=== PATIENT | female | born 1985 | race Caucasian/White ===

== ENCOUNTER 2017-08-17 12:31 | Emergency (ER) | payer BC, OTHER ==
[2017-08-17 12:48] VITALS: BP 132/76; RESP 16
[2017-08-17] MEDS ORDERED: ONDANSETRON 4 MG/2 ML VIAL IVP STA (12:57)
[2017-08-17] MEDS ORDERED: KETOROLAC 30 MG/ML 1 ML VIAL IVP STA (12:57)
[2017-08-17] MEDS ORDERED: FAMOTIDINE 20 MG/2 ML VIAL IV STA (12:58)
[2017-08-17] MEDS ORDERED: SODIUM CHLORIDE 0.9% 1,000 ML IV ONE (12:58)
[2017-08-17] MEDS ORDERED: DICYCLOMINE 10 MG/ML 2 ML AMP IM STA (12:58)
--- NOTE | 2017-08-17 13:00 | ED ---
Abdominal Pain HPI - General Chief Complaint: Abdominal Pain Stated Complaint: Vomiting, RIght side pain Time Seen by Provider: 08/17/17 12:50 Source: patient Mode of arrival: ambulatory Limitations: no limitations - History of Present Illness Initial Comments: 30-year-old female presenting with nausea vomiting diarrhea and right lower quadrant abdominal pain. Patient states the last month she's been seeing her primary care doctor for nausea and epigastric abdominal pain. She was prescribed Prilosec and Zofran. She states this morning she had multiple episodes of emesis, took Zofran at 7 AM without relief, and then began to develop sharp shooting right lower quadrant abdominal pain radiating to her right flank. She denies any urinary symptoms. States she's had multiple episodes diarrhea. Denies any recent antibiotics. Admits to subjective fever and chills. - Related Data Home Medications Medication Instructions Recorded Confirmed lamoTRIgine [LaMICtal] 200 mg PO DAILY 09/18/15 05/03/16 Previous Rx's Medication Instructions Recorded Cyclobenzaprine [Flexeril] 5 mg PO TID PRN #15 tablet 05/03/16 Hydrocodone/Acetaminophen [[place] 1 tab PO Q6HR PRN #15 tab 05/03/16 5-325] Ondansetron Odt [Zofran Odt] 4 mg PO Q8HR PRN #10 tab 05/03/16 Allergies Allergy/AdvReac Type Severity Reaction Status Date / Time Penicillins Allergy Unknown Verified 08/17/17 12:48 acetaminophen AdvReac Nausea & Verified 08/17/17 12:48 [From Tylenol-Codeine #3] Vomiting codeine phosphate AdvReac Nausea & Verified 08/17/17 12:48 [From Tylenol-Codeine #3] Vomiting Review of Systems ROS Statement: Those systems with pertinent positive or pertinent negative responses have been documented in the HPI. Review of Systems Constitutional: Denies fever, chills Eyes: Denies change in vision, Denies pain Ears, nose, mouth, throat: Denies headaches, Denies sore throat Cardiovascular: Denies chest pain. Denies palpitations Respiratory: Denies shortness of breath, Denies cough Gastrointestinal: Positive abdominal pain. Positive nausea, vomiting, diarrhea. Genitourinary: Denies hematuria, Denies infections Musculoskeletal: Denies pain, Denies swelling Integumentary: Denies rash Neurological: Denies headache, focal weakness, focal numbness Psychiatric: Denies anxiety, Denies depression Hematologic/Lymphatic: Denies easy bleeding or bruising ROS Other: All systems not noted in ROS Statement are negative. Past Medical History Past Medical History: No Reported History History of Any Multi-Drug Resistant Organisms: None Reported Past Surgical History: Section, Ear Surgery, Tubal Ligation Additional Past Surgical History / Comment(s): wisdom teeth Past Psychological History: Bipolar Smoking Status: Current every day smoker Past Alcohol Use History: None Reported Past Drug Use History: None Reported General Exam - General Exam Comments Initial Comments: General: Awake, alert, No acute Distress HENT: Normocephalic. Atraumatic Eyes: PERRL. EOMI. No scleral icterus. No injected conjunctiva Neck: Full ROM Chest/Lungs: Clear to auscultation bilaterally. No wheezing, rhonchi, or rales Cardiac: Regular rate, rhythm. No murmurs or rubs Abdomen/GI: TTP in RLQ. Negative Villarreal's sign. No rebound, guarding, or rigidity. Musculoskeletal: Full ROM Skin: Warm, dry, intact Neurologic: A/Ox3, no weakness, no sensory deficit, no abnormal gait, no coordination deficit Limitations: no limitations Course Vital Signs 08/17/17 12:45 Temperature 99.1 F Pulse Rate 83 Respiratory 16 Rate Blood Pressure 132/76 O2 Sat by Pulse 100 Oximetry Medical Decision Making - Medical Decision Making 32-year-old female presenting with abdominal pain, nausea vomiting diarrhea. Initial exam patient's awake, alert, no acute distress. VSS. Patient does have right lower quadrant abdominal tenderness. Laboratory workup is unremarkable and she has no leukocytosis. UA showed 16 squamous epithelial cells with 6 RBCs and 6 WBCs. She is negative of leukocyte esterase and nitrites. Does not meet criteria for UTI at this time. Patient's CT showed sclerosis at the sacroiliac joints. Patient is complaining of pain radiating from that area. The remainder of her CT is unremarkable. No further emergent workup indicated. Patient instructed to follow up with her primary care physician and with GI follow up provided. She was given return to ED instructions, verbalized understanding, and is agreeable to D/C plan. - Lab Data Result diagrams: 08/17/17 13:03 08/17/17 13:03 Lab Results 0408/17/17 08/17/17 Range/Units 13:03 13:03 13:40 WBC 10.5 (3.8-10.6) k/uL RBC 4.69 (3.80-5.40) m/uL Hgb 13.3 (11.4-16.0) gm/dL Hct 41.4 (34.0-46.0) % MCV 88.2 (80.0-100.0) fL MCH 28.4 (25.0-35.0) pg MCHC 32.2 (31.0-37.0) g/dL RDW 12.6 (11.5-15.5) % Plt Count 327 (150-450) k/uL Neutrophils % 68 % Lymphocytes % 25 % Monocytes % 4 % Eosinophils % 1 % Basophils % 0 % Neutrophils # 7.2 (1.3-7.7) k/uL Lymphocytes # 2.6 (1.0-4.8) k/uL Monocytes # 0.5 (0-1.0) k/uL Eosinophils # 0.1 (0-0.7) k/uL Basophils # 0.0 (0-0.2) k/uL Sodium 145 (137-145) mmol/L Potassium 4.3 (3.5-5.1) mmol/L Chloride 108 H (98-107) mmol/L Carbon Dioxide 26 (22-30) mmol/L Anion Gap 11 mmol/L BUN 14 (7-17) mg/dL Creatinine 0.70 (0.52-1.04) mg/dL Est GFR (CKD-EPI)AfAm >90 (>60 ml/min/1.73 sqM) Est GFR (CKD-EPI)NonAf >90 (>60 ml/min/1.73 sqM) Glucose 90 (74-99) mg/dL Calcium 9.4 (8.4-10.2) mg/dL Total Bilirubin 0.2 (0.2-1.3) mg/dL Conjugated Bilirubin 0.0 (0.0-0.3) mg/dL Unconjugated Bilirubin 0.0 (0.0-1.1) mg/dL Delta Bilirubin 0.2 (0.0-0.2) mg/dL AST 21 (14-36) U/L ALT 29 (9-52) U/L Alkaline Phosphatase 76 (38-126) U/L Total Protein 7.1 (6.3-8.2) g/dL Albumin 4.0 (3.5-5.0) g/dL Lipase 75 (23-300) U/L HCG, Qual Not Detected Urine Color Yellow Urine Appearance Cloudy H (Clear) Urine pH 6.0 (5.0-8.0) Ur Specific [place] 1.024 (1.001-1.035) Urine Protein Trace H (Negative) Urine Glucose (UA) Negative (Negative) Urine Ketones Negative (Negative) Urine Blood Trace H (Negative) Urine Nitrite Negative (Negative) Urine Bilirubin Negative (Negative) Urine Urobilinogen <2.0 (<2.0) mg/dL Ur Leukocyte Esterase Negative (Negative) Urine RBC 6 H (0-5) /hpf Urine WBC 6 H (0-5) /hpf Ur Squamous Epith Cells 16 H (0-4) /hpf Urine Mucus Moderate H (None) /hpf Disposition Clinical Impression: Abdominal pain, Nausea and vomiting, Sacroiliac joint disease Disposition: HOME SELF-CARE Condition: Good Instructions: Abdominal Pain (ED), Acute Nausea and Vomiting (ED), Sacroiliitis (ED) Referrals: Emiliano Orozco PAC [Primary Care Provider] - 1-2 days Deuce Martins MD [STAFF PHYSICIAN] - 1-2 days
[2017-08-17 13:18] LABS: Basophils % (A) 0 %; Eosinophils # (A) 0.1 k/uL (0-0.7); Eosinophils % (A) 1 %; HCT 41.4 % (34.0-46.0); HGB 13.3 gm/dL (11.4-16.0); Lymphocytes # (A) 2.6 k/uL (1.0-4.8); Lymphocytes % (A) 25 %; MCH 28.4 pg (25.0-35.0); MCHC 32.2 g/dL (31.0-37.0); MCV 88.2 fL (80.0-100.0); Mean Platelet Volume 7.8; Monocytes # (A) 0.5 k/uL (0-1.0); Monocytes % (A) 4 %; Neutrophils # (A) 7.2 k/uL (1.3-7.7); Neutrophils % (A) 68 %; Platelet Count 327 k/uL (150-450); RBC 4.69 m/uL (3.80-5.40); RDW 12.6 % (11.5-15.5); WBC 10.5 k/uL (3.8-10.6)
[2017-08-17 13:22] LABS: ALT 29 U/L (9-52); AST 21 U/L (14-36); Alkaline Phosphatase 76 U/L (38-126); Anion Gap 11 mmol/L; Bilirubin, Delta 0.2 mg/dL (0.0-0.2); Blood Urea Nitrogen 14 mg/dL (7-17); Calcium 9.4 mg/dL (8.4-10.2); Carbon Dioxide 26 mmol/L (22-30); Chloride 108 mmol/L (98-107); Glucose 90 mg/dL (74-99); Lipase 75 U/L (23-300); Potassium 4.3 mmol/L (3.5-5.1); Sodium 145 mmol/L (137-145); Total Bilirubin 0.2 mg/dL (0.2-1.3); Total Protein 7.1 g/dL (6.3-8.2)
[2017-08-17 13:23] LABS: HCG,Qualitative Serum Not Detected
[2017-08-17 14:09] LABS: Appearance,Urine Cloudy (Clear); Bilirubin,Urine Negative (Negative); Blood,Urine Trace (Negative); Color,Urine Yellow; Glucose,Urine (UA) Negative (Negative); Ketones,Urine Negative (Negative); Leukocyte Esterase,Urine Negative (Negative); Mucus,Urine Moderate /hpf; Nitrite,Urine Negative (Negative); Protein,Urine Trace (Negative); RBC,Urine 6 /hpf (0-5); Specific Gravity,Urine 1.024 (1.001-1.035); Squamous Epithelial Cell,Urine 16 /hpf (0-4); Urobilinogen,Urine <2.0 mg/dL (<2.0); WBC,Urine 6 /hpf (0-5)
--- NOTE | 2017-08-17 14:53 | CT ---
EXAMINATION TYPE: CT abdomen pelvis wo con DATE OF EXAM: 08/17/2017 COMPARISON: Previous exam 05/03/2016 HISTORY: Rt sided pain, vomiting CT DLP: 1034 mGycm Automated exposure control for dose reduction was used. TECHNIQUE: Helical acquisition of images from the lung bases through the pelvis. FINDINGS: Lack of intravenous contrast may compromise sensitivity. Umbilical hernia contains fat. LUNG BASES: No significant abnormality is appreciated. AORTA: No significant abnormality is appreciated. LIVER/GB: No significant abnormality is appreciated. PANCREAS: No significant abnormality is seen. SPLEEN: No significant abnormality is seen. ADRENALS: No significant abnormality is seen. KIDNEYS: No evident hydronephrosis. There are changes of medullary sponge kidney, no evident hydronep hrosis or ureteral calcification. REPRODUCTIVE ORGANS: Fallopian tubal ligation clips are present.. URINARY BLADDER: No significant abnormality is seen. BOWEL: No bowel obstruction. Appendix is normal. FREE AIR: No Free Air is visible. ASCITES: None visible. PELVIC ADENOPATHY: None visualized. RETROPERITONEAL ADENOPATHY: No Retroperitoneal Adenopathy visible. OSSEOUS STRUCTURES: Sclerosis present at the sacroiliac joints could be due to chronic stress change . IMPRESSION: NONCONTRAST EXAM. NO ABNORMALITY EVIDENT TO ACCOUNT FOR PATIENT'S SYMPTOMS. ADDITIONAL NONSPECIFIC FI NDINGS ABOVE.
[2017-08-17 15:23] VITALS: PULSE 81; TEMP 98.6
== END 2017-08-17 15:22 | disposition home or self-care (01) ==
LOC: EC 12:31
DX: R10.31 Right lower quadrant pain (principal); R10.13 Epigastric pain; R11.2 Nausea with vomiting, unspecified; M53.3 Sacrococcygeal disorders, not elsewhere classified; R19.7 Diarrhea, unspecified; F31.9 Bipolar disorder, unspecified; F17.200 Nicotine dependence, unspecified, uncomplicated; Z79.899 Other long term (current) drug therapy; Z88.0 Allergy status to penicillin; Z88.5 Allergy status to narcotic agent; Z88.6 Allergy status to analgesic agent
CPT/HCPCS: 36415; 80048; 80076; 83690; 85025; 81001; 84703; 74176; 99284; 96374; 96375 ×2; 96361; 96372; J0500; J2405; J1885

== ENCOUNTER 2019-06-30 09:12 | Emergency (ER) | payer BC, OTHER ==
[2019-06-30 09:44] VITALS: RESP 18; TEMP 98.3
[2019-06-30] MEDS ORDERED: ONDANSETRON 4 MG/2 ML VIAL IVP STA (10:15)
[2019-06-30] MEDS ORDERED: KETOROLAC 30 MG/ML 1 ML VIAL IVP STA (10:15)
[2019-06-30] MEDS ORDERED: SODIUM CHLORIDE 0.9% 1,000 ML IV STA (10:15)
--- NOTE | 2019-06-30 10:36 | ED ---
Skin/Abscess/FB HPI - General Chief complaint: Skin/Abscess/Foreign Body Stated complaint: rash/body numbness Time Seen by Provider: 06/30/19 10:04 Source: patient Mode of arrival: ambulatory Limitations: no limitations - History of Present Illness Initial comments: Patient is a 34-year-old female, with history of bipolar, presenting to emergency Department with complaints of a rash on the inside of her bilateral upper legs that she noticed 3 days ago. Patient states she felt like the rash was spreading. She states the rash increases in the shower. Patient states she also has been having a headache and nausea and vomiting for the past 3 days as well. She states she has history of blood clots her and her family and is afraid she may be having a clot. Patient denies any pain in her legs, redness or swelling. She denies any recent travel. She denies being on control. She states she does have a history of headaches but states they usually go away faster than this one is. She does admit to going through a divorce currently, so her stress level has significantly increased. She denies any trauma. She denies any fever, chills, shortness of breath, chest pain, abdominal pain. She has no other complaints at this time. Upon arrival to the ER her vital signs are stable. - Related Data Home Medications Medication Instructions Recorded Confirmed lamoTRIgine [LaMICtal] 200 mg PO DAILY 09/18/15 05/03/16 Previous Rx's Medication Instructions Recorded Cyclobenzaprine [Flexeril] 5 mg PO TID PRN #15 tablet 05/03/16 Hydrocodone/Acetaminophen [[place] 1 tab PO Q6HR PRN #15 tab 05/03/16 5-325] Ondansetron Odt [Zofran Odt] 4 mg PO Q8HR PRN #10 tab 05/03/16 Allergies Allergy/AdvReac Type Severity Reaction Status Date / Time Penicillins Allergy Itching Verified 06/30/19 09:44 acetaminophen AdvReac Nausea & Verified 08/17/17 12:48 [From Tylenol-Codeine #3] Vomiting codeine phosphate AdvReac Nausea & Verified 08/17/17 12:48 [From Tylenol-Codeine #3] Vomiting Review of Systems ROS Statement: Those systems with pertinent positive or pertinent negative responses have been documented in the HPI. ROS Other: All systems not noted in ROS Statement are negative. Past Medical History Past Medical History: No Reported History History of Any Multi-Drug Resistant Organisms: None Reported Past Surgical History: Section, Ear Surgery, Tubal Ligation Additional Past Surgical History / Comment(s): wisdom teeth Past Psychological History: Bipolar Smoking Status: Current every day smoker Past Alcohol Use History: None Reported Past Drug Use History: None Reported General Exam - General Exam Comments Initial Comments: GENERAL: Well-appearing, well-nourished and in no acute distress. HEAD: Atraumatic, normocephalic. EYES: Pupils equal round and reactive to light, extraocular movements intact, sclera anicteric, conjunctiva are normal. ENT: TMs normal, nares patent, oropharynx clear without exudates. Moist mucous membr anes. NECK: Normal range of motion, supple without lymphadenopathy or JVD. LUNGS: Breath sounds clear to auscultation bilaterally and equal. No wheezes rales or rhonchi. HEART: Regular rate and rhythm without murmurs, rubs or gallops. ABDOMEN: Soft, nontender, normoactive bowel sounds. No guarding, no rebound. No masses appreciated. : Deferred EXTREMITIES: Normal range of motion, no pitting or edema. No clubbing or cyanosis. Sensation is equal in bilateral lower extremities. Strength is 5 out of 5 lower extremities bilaterally. Patient is neurovascular intact. NEUROLOGICAL: Cranial nerves II through XII grossly intact. Normal speech, normal gait. PSYCH: Normal mood, normal affect. SKIN: Warm, Dry, normal turgor,. Patient has a molten appearance rash on the inside of both inner upper legs. Limitations: no limitations Course Vital Signs 06/30/19 06/30/19 06/30/19 09:39 11:43 12:40 Temperature 98.3 F Pulse Rate 87 75 78 Respiratory 18 18 18 Rate Blood Pressure 136/89 121/73 121/78 O2 Sat by Pulse 100 98 98 Oximetry Medical Decision Making - Medical Decision Making Patient is a 34-year-old female presenting with a molten appearance rash on the inner aspect of bilateral upper legs as well as vomiting, headache 3 days. No fevers. Vital signs are stable. No recent travel, no history of blood clots. Patient's exam is unremarkable except for the rash as previously described. Patient's lab work is unremarkable. Patient was given fluids and medicine for the headache. She reports improvment in her symptoms. I discussed with patient that this rash is most likely viral or stress induced. She will follow-up with her PCP regarding the rash. She is stable for discharge at this time. Return parameters were discussed with the patient she verbalized understanding. - Lab Data Result diagrams: 06/30/19 10:25 06/30/19 10:25 Lab Results 06/30/19 06/30/19 06/30/19 Range/Units 10:25 10:25 10:25 WBC 10.0 (3.8-10.6) k/uL RBC 5.15 (3.80-5.40) m/uL Hgb 15.1 (11.4-16.0) gm/dL Hct 45.9 (34.0-46.0) % MCV 89.3 (80.0-100.0) fL MCH 29.3 (25.0-35.0) pg MCHC 32.8 (31.0-37.0) g/dL RDW 12.7 (11.5-15.5) % Plt Count 305 (150-450) k/uL Neutrophils % 77 % Lymphocytes % 17 % Monocytes % 4 % Eosinophils % 1 % Basophils % 0 % Neutrophils # 7.7 (1.3-7.7) k/uL Lymphocytes # 1.7 (1.0-4.8) k/uL Monocytes # 0.4 (0-1.0) k/uL Eosinophils # 0.1 (0-0.7) k/uL Basophils # 0.0 (0-0.2) k/uL PT 9.5 (9.0-12.0) sec INR 0.9 (<1.2) APTT 24.1 (22.0-30.0) sec Sodium 138 (137-145) mmol/L Potassium 4.7 (3.5-5.1) mmol/L Chloride 105 (98-107) mmol/L Carbon Dioxide 23 (22-30) mmol/L Anion Gap 10 mmol/L BUN 12 (7-17) mg/dL Creatinine 0.57 (0.52-1.04) mg/dL Est GFR (CKD-EPI)AfAm >90 (>60 ml/min/1.73 sqM) Est GFR (CKD-EPI)NonAf >90 (>60 ml/min/1.73 sqM) Glucose 97 (74-99) mg/dL Calcium 9.3 (8.4-10.2) mg/dL Total Bilirubin 0.4 (0.2-1.3) mg/dL AST 28 (14-36) U/L ALT 20 (4-34) U/L Alkaline Phosphatase 85 (38-126) U/L Total Protein 7.7 (6.3-8.2) g/dL Albumin 4.4 (3.5-5.0) g/dL Disposition Clinical Impression: Rash, Migraine, Nausea Disposition: HOME SELF-CARE Condition: Stable Instructions (If sedation given, give patient instructions): Migraine Headache (ED) Additional Instructions: Please return to the Emergency Department if symptoms worsen or any other concerns. Increase fluid intake. A trial of Excedrin for migraines for future headaches. Follow-up with PCP regarding rash if symptoms persist. Is patient prescribed a controlled substance at d/c from ED?: No Referrals: Courtney Galvez DO [Primary Care Provider] - 1-2 days
[2019-06-30 10:51] LABS: INR 0.9 (<1.2); Partial Thromboplastin Time 24.1 sec (22.0-30.0); Prothrombin Time 9.5 sec (9.0-12.0)
[2019-06-30 11:09] LABS: Basophils % (A) 0 %; Eosinophils # (A) 0.1 k/uL (0-0.7); Eosinophils % (A) 1 %; HCT 45.9 % (34.0-46.0); HGB 15.1 gm/dL (11.4-16.0); Lymphocytes # (A) 1.7 k/uL (1.0-4.8); Lymphocytes % (A) 17 %; MCH 29.3 pg (25.0-35.0); MCHC 32.8 g/dL (31.0-37.0); MCV 89.3 fL (80.0-100.0); Mean Platelet Volume 8.2; Monocytes # (A) 0.4 k/uL (0-1.0); Monocytes % (A) 4 %; Neutrophils # (A) 7.7 k/uL (1.3-7.7); Neutrophils % (A) 77 %; Platelet Count 305 k/uL (150-450); RBC 5.15 m/uL (3.80-5.40); RDW 12.7 % (11.5-15.5)
[2019-06-30 11:14] LABS: ALT 20 U/L (4-34); AST 28 U/L (14-36); African American GFR (CKD) >90 (>60 ml/min/1.73 sqM); Albumin 4.4 g/dL (3.5-5.0); Alkaline Phosphatase 85 U/L (38-126); Anion Gap 10 mmol/L; Blood Urea Nitrogen 12 mg/dL (7-17); Calcium 9.3 mg/dL (8.4-10.2); Carbon Dioxide 23 mmol/L (22-30); Chloride 105 mmol/L (98-107); Glucose 97 mg/dL (74-99); Non-African American GFR(CKD) >90 (>60 ml/min/1.73 sqM); Potassium 4.7 mmol/L (3.5-5.1); Sodium 138 mmol/L (137-145); Total Bilirubin 0.4 mg/dL (0.2-1.3); Total Protein 7.7 g/dL (6.3-8.2)
[2019-06-30] MEDS ORDERED: MORPHINE SULFATE 4 MG/ML SYRINGE IVP STA (11:48)
[2019-06-30 12:44] VITALS: BP 121/78; PULSE 78
== END 2019-06-30 12:36 | disposition home or self-care (01) ==
LOC: EC 09:12 → SUPCPDRO 09:12 → EC 12:36
DX: G43.909 Migraine, unspecified, not intractable, without status migrainosus (principal); R21 Rash and other nonspecific skin eruption; F31.9 Bipolar disorder, unspecified; F17.200 Nicotine dependence, unspecified, uncomplicated; Z88.0 Allergy status to penicillin; Z88.5 Allergy status to narcotic agent; Z88.6 Allergy status to analgesic agent; Z79.899 Other long term (current) drug therapy; Z86.718 Personal history of other venous thrombosis and embolism; Z63.5 Disruption of family by separation and divorce
CPT/HCPCS: 99284; 96374; 96375 ×2; 96361; 36415; 80053; 85025; 85610; 85730; J2270; J2405; J1885